=== PATIENT | female | born 1980 | race Caucasian/White ===

== ENCOUNTER 2019-04-24 08:20 | Inpatient (IN) | payer MEDICAID ==
[~2019-04-24] VITALS: Ht 162.6 cm; Wt 69.1 kg
[~2019-04-24 08:20] MED LIST: FERR-89 PO; OLAN7.5T2 PO
[2019-04-24] MEDS ORDERED: DiphenhydrAMINE HCL 50 MG/ML VIAL IM ONE (08:45)
[2019-04-24] MEDS ORDERED: LORazepam 2 MG/ML VIAL IM ONE (08:45)
[2019-04-24] MEDS ORDERED: HALOPERIDOL LACTATE 5 MG/ML VIAL IM ONE (08:45)
[2019-04-24 10:57] LABS: BASOPHILS % (AUTO) 0.5 % (0.0-2.0); EOSINOPHILS % (AUTO) 1.2 % (1.0-6.0); HEMATOCRIT 35.6 % (36-46); HEMOGLOBIN 11.5 g/dL (12.0-16.0); LYMPHOCYTES % (AUTO) 22.9 % (22.0-44.0); MEAN CORPUSCULAR HEMOGLOBIN 27.3 pg (26.0-34.0); MEAN CORPUSCULAR HGB CONC 32.3 G/dL (31.0-37.0); MEAN CORPUSCULAR VOLUME 85 fL (80-100); MONOCYTES # (AUTO) 1.1 K/uL (0.1-1.0); MONOCYTES % (AUTO) 12.4 % (2.0-9.0); NEUTROPHILS # (AUTO) 5.6 K/uL (1.8-7.7); PLATELET COUNT (AUTO) 237 K/uL (150-450); RED CELL DISTRIBUTION WIDTH 18.5 % (11.5-14.5)
[2019-04-24] MEDS ORDERED: HALOPERIDOL 5 MG TABLET PO ONE (11:00)
[2019-04-24] MEDS ORDERED: LORazepam 1 MG TABLET PO ONE (11:00)
[2019-04-24 11:11] LABS: AMPHET/METH SCREEN,URINE POSITIVE (NEGATIVE); BARBITURATE SCREEN, URINE NEGATIVE (NEGATIVE); BENZODIAZEPINES SCREEN,URINE NEGATIVE (NEGATIVE); CANNABINOID SCREEN,URINE NEGATIVE (NEGATIVE); COCAINE SCREEN,URINE NEGATIVE (NEGATIVE); METHADONE SCREEN, URINE NEGATIVE (NEGATIVE); OPIATE SCREEN,URINE NEGATIVE (NEGATIVE)
[2019-04-24 11:12] LABS: PHENCYCLIDINE SCREEN,URINE NEGATIVE (NEGATIVE)
[2019-04-24 11:16] LABS: ANION GAP 12 mmol/L (8-16); CALCIUM, TOTAL 9.4 mg/dL (8.8-10.5); CARBON DIOXIDE 22 mmol/L (22-29); CHLORIDE 105 mmol/L (98-107); CREATININE 0.88 mg/dL (0.60-1.30); GLOMERULAR FILTR. RATE CALC > 60 mL/min (>60); GLUCOSE,RANDOM 98 mg/dL (70-110); POTASSIUM 3.5 mmol/L (3.5-5.1); SODIUM SERUM 139 mmol/L (136-145); UREA NITROGEN, BLOOD 29 mg/dL (7-18)
[2019-04-24 11:32] LABS: ALANINE AMINOTRANSFERASE 39 U/L (12-78); ALBUMIN 4.2 g/dL (3.4-5.0); ALKALINE PHOSPHATASE 83 U/L (46-116); ASPARTATE AMINOTRANSFERASE 57 U/L (15-37); BILIRUBIN,TOTAL 0.9 mg/dL (0.1-1.0); HCG,QUANTITATIVE < 1 mIU/mL (0-6); TOTAL PROTEIN, SERUM 8.6 g/dL (6.4-8.2)
[2019-04-24] MEDS ORDERED: LORazepam 2 MG TABLET PO PRN (13:30)
[2019-04-24] MEDS ORDERED: HALOPERIDOL 5 MG TABLET PO PRN (13:30)
[2019-04-24] MEDS ORDERED: ZOLPIDEM TARTRATE 10 MG TABLET PO PRN (13:30)
[2019-04-24 14:07] VITALS: BP 125/80
[2019-04-24] MEDS ORDERED: ONDANSETRON HCL 4 MG TABLET PO PRN (15:00)
[2019-04-24] MEDS ORDERED: MAGNESIUM HYDROXIDE SUSPENSION 30 ML UDCUP PO PRN (15:00)
[2019-04-24] MEDS ORDERED: ACETAMINOPHEN 325 MG TABLET PO PRN (15:00)
[2019-04-24] MEDS ORDERED: LOPERAMIDE HCL 2 MG CAPSULE PO PRN (15:00)
[2019-04-24] MEDS ORDERED: CloNIDine HCL 0.1 MG TABLET PO PRN (15:00)
[2019-04-24] MEDS ORDERED: DOCUSATE SODIUM 100 MG CAPSULE PO PRN (15:00)
[2019-04-24] MEDS ORDERED: IBUPROFEN 400 MG TABLET PO PRN (15:00)
[2019-04-24] MEDS ORDERED: MAG HYDROX/AL HYDROX/SIMETH ES 30 ML SUSPENSION UDCUP PO PRN (15:00)
[2019-04-24] MEDS ORDERED: NICOTINE 14 MG/24 HOUR PATCH TD PRN (15:00)
[2019-04-24] MEDS ORDERED: GuaiFENesin/D-METHORPHAN [SUGAR-FREE] 200-20MG/10 ML SYRUP UDCUP PO PRN (15:00)
[2019-04-24] MEDS ORDERED: PETROLATUM,WHITE 28 GM JELLY TP PRN (15:00)
[2019-04-24] MEDS ORDERED: ALBUTEROL SULFATE HFA 90 MCG/PUFF 8 GM INHALER IH PRN (15:00)
[2019-04-24 16:41] VITALS: BP 123/78
[2019-04-25 02:51] VITALS: BP 135/70
[2019-04-25 07:00] LABS: BASOPHILS % (AUTO) 0.6 % (0.0-2.0); EOSINOPHILS % (AUTO) 1.8 % (1.0-6.0); HEMATOCRIT 33.8 % (36-46); HEMOGLOBIN 10.8 g/dL (12.0-16.0); LYMPHOCYTES # (AUTO) 1.6 K/uL (1.0-4.8); LYMPHOCYTES % (AUTO) 33.6 % (22.0-44.0); MEAN CORPUSCULAR HEMOGLOBIN 27.2 pg (26.0-34.0); MEAN CORPUSCULAR HGB CONC 32.1 G/dL (31.0-37.0); MEAN CORPUSCULAR VOLUME 85 fL (80-100); MONOCYTES # (AUTO) 0.6 K/uL (0.1-1.0); MONOCYTES % (AUTO) 12.8 % (2.0-9.0); NEUTROPHILS # (AUTO) 2.4 K/uL (1.8-7.7); NEUTROPHILS % (AUTO) 51.2 % (40.0-70.0); PLATELET COUNT (AUTO) 189 K/uL (150-450); RED BLOOD CELL COUNT(AUTO) 3.99 MIL/uL (4.00-5.20); RED CELL DISTRIBUTION WIDTH 18.3 % (11.5-14.5)
[2019-04-25 07:13] LABS: HEMOGLOBIN A1C 4.9 % (4.5-6.2)
[2019-04-25 07:35] LABS: ALANINE AMINOTRANSFERASE 29 U/L (12-78); ALBUMIN 3.2 g/dL (3.4-5.0); ALKALINE PHOSPHATASE 75 U/L (46-116); ANION GAP 7 mmol/L (8-16); ASPARTATE AMINOTRANSFERASE 33 U/L (15-37); BILIRUBIN,TOTAL 0.5 mg/dL (0.1-1.0); CALCIUM, TOTAL 8.6 mg/dL (8.8-10.5); CARBON DIOXIDE 24 mmol/L (22-29); CHLORIDE 107 mmol/L (98-107); CHOL/HDL RATIO 2.1 (3.9-5.7); CHOLESTEROL 143 mg/dL (131-200); CREATININE 0.67 mg/dL (0.60-1.30); GLOMERULAR FILTR. RATE CALC > 60 mL/min (>60); GLUCOSE,RANDOM 104 mg/dL (70-110); HDL CHOLESTEROL 69 mg/dL (40-60); LDL CHOL (CALC.) 69 mg/dL (0-130); POTASSIUM 4.5 mmol/L (3.5-5.1); SODIUM SERUM 138 mmol/L (136-145); THYROID STIMULATING HORMONE 2.28 uIU/mL (0.36-3.74); TOTAL PROTEIN, SERUM 7.1 g/dL (6.4-8.2); TRIGLYCERIDES 24 mg/dL (15-150); UREA NITROGEN, BLOOD 29 mg/dL (7-18)
[2019-04-25 11:08] VITALS: BP 124/67
[2019-04-25] MEDS: OLANZapine 5 MG RAPDIS TABLET PO SCH ×2 (11:58→16:19)
[2019-04-25 16:44] VITALS: BP 150/72
[2019-04-26 08:36] VITALS: BP 123/67
[2019-04-26] MEDS: OLANZapine 5 MG RAPDIS TABLET PO SCH ×2 (09:18→16:21)
[2019-04-26 16:35] VITALS: BP 149/85
[2019-04-27 08:10] VITALS: BP 132/93
[2019-04-27] MEDS: OLANZapine 5 MG RAPDIS TABLET PO SCH (08:41)
[2019-04-27] MEDS ORDERED: OLAN5TAB2 PO (11:19)
== END 2019-04-27 13:40 | disposition home or self-care (01) | DRG 750 ==
LOC: EMS 08:21 → 3EC 12:42
PROVIDERS: ADMIT Psychiatry & Neurology Child & Adolescent Psychiatry; ATTEND Psychiatry & Neurology Child & Adolescent Psychiatry
DX: F20.0 Paranoid schizophrenia (principal); R74.0 Nonspecific elevation of levels of transaminase and lactic acid dehydrogenase [LDH]; D64.9 Anemia, unspecified; F12.90 Cannabis use, unspecified, uncomplicated; F15.10 Other stimulant abuse, uncomplicated; Z87.891 Personal history of nicotine dependence; Z98.891 History of uterine scar from previous surgery; Z79.899 Other long term (current) drug therapy
CPT/HCPCS: 83036; 84443; G0480; J1200; J1630; J2060

== ENCOUNTER 2019-06-11 15:55 | Inpatient (IN) | payer MEDICAID ==
[~2019-06-11] VITALS: Ht 162.6 cm; Wt 68.5 kg
[~2019-06-11 15:55] MED LIST changes: -FERR-89 PO; +OLAN5TAB2 PO; -OLAN7.5T2 PO
[2019-06-11] MEDS ORDERED: LORazepam 2 MG TABLET PO PRN (18:45)
[2019-06-11] MEDS ORDERED: ZOLPIDEM TARTRATE 10 MG TABLET PO PRN (18:45)
[2019-06-11] MEDS ORDERED: HALOPERIDOL 5 MG TABLET PO PRN (18:45)
[2019-06-11] MEDS ORDERED: ALBUTEROL SULFATE HFA 90 MCG/PUFF 8 GM INHALER IH PRN (22:00)
[2019-06-11] MEDS ORDERED: IBUPROFEN 400 MG TABLET PO PRN (22:00)
[2019-06-11] MEDS ORDERED: ACETAMINOPHEN 325 MG TABLET PO PRN (22:00)
[2019-06-11] MEDS ORDERED: MAGNESIUM HYDROXIDE SUSPENSION 30 ML UDCUP PO PRN (22:00)
[2019-06-11] MEDS ORDERED: DOCUSATE SODIUM 100 MG CAPSULE PO PRN (22:00)
[2019-06-11] MEDS ORDERED: NICOTINE 14 MG/24 HOUR PATCH TD PRN (22:00)
[2019-06-11] MEDS ORDERED: PETROLATUM,WHITE 28 GM JELLY TP PRN (22:00)
[2019-06-11] MEDS ORDERED: CloNIDine HCL 0.1 MG TABLET PO PRN (22:00)
[2019-06-11] MEDS ORDERED: ONDANSETRON HCL 4 MG TABLET PO PRN (22:00)
[2019-06-11] MEDS ORDERED: MAG HYDROX/AL HYDROX/SIMETH ES 30 ML SUSPENSION UDCUP PO PRN (22:00)
[2019-06-11] MEDS ORDERED: LOPERAMIDE HCL 2 MG CAPSULE PO PRN (22:00)
[2019-06-11] MEDS ORDERED: GuaiFENesin/D-METHORPHAN [SUGAR-FREE] 200-20MG/10 ML SYRUP UDCUP PO PRN (22:00)
[2019-06-12 07:23] LABS: BASOPHILS % (AUTO) 0.3 % (0.0-2.0); EOSINOPHILS % (AUTO) 1.1 % (1.0-6.0); HEMATOCRIT 35.9 % (36-46); HEMOGLOBIN 11.5 g/dL (12.0-16.0); LYMPHOCYTES # (AUTO) 1.3 K/uL (1.0-4.8); LYMPHOCYTES % (AUTO) 17.8 % (22.0-44.0); MEAN CORPUSCULAR HEMOGLOBIN 27.5 pg (26.0-34.0); MEAN CORPUSCULAR VOLUME 86 fL (80-100); MONOCYTES # (AUTO) 0.5 K/uL (0.1-1.0); MONOCYTES % (AUTO) 7.6 % (2.0-9.0); NEUTROPHILS # (AUTO) 5.2 K/uL (1.8-7.7); NEUTROPHILS % (AUTO) 73.2 % (40.0-70.0); PLATELET COUNT (AUTO) 241 K/uL (150-450); RED BLOOD CELL COUNT(AUTO) 4.17 MIL/uL (4.00-5.20); RED CELL DISTRIBUTION WIDTH 15.2 % (11.5-14.5)
[2019-06-12 07:49] LABS: ALANINE AMINOTRANSFERASE 22 U/L (12-78); ALBUMIN 3.1 g/dL (3.4-5.0); ALKALINE PHOSPHATASE 77 U/L (46-116); ANION GAP 9 mmol/L (8-16); ASPARTATE AMINOTRANSFERASE 22 U/L (15-37); BILIRUBIN,TOTAL 0.3 mg/dL (0.1-1.0); CALCIUM, TOTAL 8.7 mg/dL (8.8-10.5); CARBON DIOXIDE 25 mmol/L (22-29); CHLORIDE 103 mmol/L (98-107); CHOL/HDL RATIO 2.2 (3.9-5.7); CHOLESTEROL 128 mg/dL (131-200); CREATININE 0.66 mg/dL (0.60-1.30); FREE T4 (FREE THYROXINE) 0.98 ng/dL (0.76-1.46); GLOMERULAR FILTR. RATE CALC > 60 mL/min (>60); GLUCOSE,RANDOM 92 mg/dL (70-110); HDL CHOLESTEROL 59 mg/dL (40-60); HEMOGLOBIN A1C 5.4 % (4.5-6.2); LDL CHOL (CALC.) 62 mg/dL (0-130); POTASSIUM 3.9 mmol/L (3.5-5.1); SODIUM SERUM 137 mmol/L (136-145); THYROID STIMULATING HORMONE 1.55 uIU/mL (0.36-3.74); TOTAL PROTEIN, SERUM 6.4 g/dL (6.4-8.2); TRIGLYCERIDES 36 mg/dL (15-150); UREA NITROGEN, BLOOD 20 mg/dL (7-18)
[2019-06-12 08:25] VITALS: BP 102/69
[2019-06-12] MEDS ORDERED: HydrOXYzine PAMOATE 50 MG CAPSULE PO PRN (14:30)
[2019-06-12] MEDS ORDERED: TUBERCULIN, PURIFIED PROTEIN DERIVATIVE 5 TU/0.1 ML SYRINGE ID ONE (14:30)
[2019-06-12] MEDS ORDERED: GuaiFENesin/D-METHORPHAN [SUGAR-FREE] 200-20MG/10 ML SYRUP UDCUP PO PRN (14:30)
[2019-06-12] MEDS ORDERED: OLANZapine 5 MG RAPDIS TABLET PO PRN (14:30)
[2019-06-12] MEDS: THIAMINE HCL 100 MG TABLET PO SCH (16:03)
[2019-06-12 16:06] VITALS: BP 114/74
[2019-06-12] MEDS: OLANZapine 5 MG RAPDIS TABLET PO SCH (20:32)
[2019-06-13 06:51] VITALS: BP 111/67
[2019-06-13 08:19] VITALS: BP 146/95
[2019-06-13] MEDS: THIAMINE HCL 100 MG TABLET PO SCH ×2 (08:52→17:12)
[2019-06-13] MEDS: FOLIC ACID 1 MG TABLET PO SCH (08:52)
[2019-06-13] MEDS: NALTREXONE HCL 50 MG TABLET PO SCH (08:52)
[2019-06-13] MEDS: MULTIVITAMINS WITH MINERALS, THERAPEUTIC TABLET PO SCH (08:56)
[2019-06-13 13:38] VITALS: BP 136/85
[2019-06-13] MEDS: OLANZapine 5 MG RAPDIS TABLET PO SCH (20:10)
[2019-06-14 06:13] VITALS: BP 132/80
[2019-06-14 08:31] VITALS: BP 106/71
[2019-06-14] MEDS: THIAMINE HCL 100 MG TABLET PO SCH ×2 (09:10→17:15)
[2019-06-14] MEDS: NALTREXONE HCL 50 MG TABLET PO SCH (09:10)
[2019-06-14] MEDS: MULTIVITAMINS WITH MINERALS, THERAPEUTIC TABLET PO SCH (09:10)
[2019-06-14] MEDS: FOLIC ACID 1 MG TABLET PO SCH (09:10)
[2019-06-14 16:13] VITALS: BP 115/68
[2019-06-14] MEDS: OLANZapine 5 MG RAPDIS TABLET PO SCH (20:10)
[2019-06-15] MEDS: NALTREXONE HCL 50 MG TABLET PO SCH (09:01)
[2019-06-15] MEDS: FOLIC ACID 1 MG TABLET PO SCH (09:01)
[2019-06-15] MEDS: THIAMINE HCL 100 MG TABLET PO SCH (09:01)
[2019-06-15] MEDS: MULTIVITAMINS WITH MINERALS, THERAPEUTIC TABLET PO SCH (09:01)
[2019-06-15 10:19] VITALS: BP 123/78
== END 2019-06-15 16:00 | disposition short-term general hospital (02) | DRG 750 ==
LOC: B3A 16:37
PROVIDERS: ADMIT Psychiatry & Neurology Psychiatry; ATTEND Psychiatry & Neurology Psychiatry
DX: F20.0 Paranoid schizophrenia (principal); L03.116 Cellulitis of left lower limb; D64.9 Anemia, unspecified; F17.210 Nicotine dependence, cigarettes, uncomplicated; G44.209 Tension-type headache, unspecified, not intractable; E78.5 Hyperlipidemia, unspecified; F60.0 Paranoid personality disorder; R45.87 Impulsiveness; Z98.891 History of uterine scar from previous surgery; Z65.3 Problems related to other legal circumstances; Z59.0 Homelessness; Z91.19 Patient's noncompliance with other medical treatment and regimen
CPT/HCPCS: 83036; 84439; 84443

== ENCOUNTER 2022-03-25 09:51 | Emergency (ER) | payer MEDICAID ==
[~2022-03-25 09:51] MED LIST changes: +CLIN-116 PO; -OLAN5TAB2 PO; +OLAN5TAB52 PO
== END 2022-03-25 10:48 | disposition left against medical advice (07) ==
LOC: EMS 09:51
DX: Z53.21 Procedure and treatment not carried out due to patient leaving prior to being seen by health care provider (principal)